=== PATIENT | female | born 1945 | race Asian ===

== ENCOUNTER 2022-06-20 18:16 | Inpatient (IN) | payer MEDICARE, OTHER ==
[~2022-06-20] VITALS: Ht 167.6 cm; Wt 122.5 kg
[2022-06-20] MEDS ORDERED: CALC1TAB30 PO (19:08)
[2022-06-20] MEDS ORDERED: BENZ-13 PO (19:08)
[2022-06-20] MEDS ORDERED: HYDR-894 PO (19:08)
[2022-06-20] MEDS ORDERED: BUME2TAB7 PO (19:08)
[2022-06-20] MEDS ORDERED: INSU100V39 SQ ×2 (19:08)
[2022-06-20] MEDS ORDERED: MAG30ORA PO (19:08)
[2022-06-20] MEDS ORDERED: SILVER SULFADIAZINE TOP (19:08)
[2022-06-20] MEDS ORDERED: INSU100V7 SQ (19:08)
[2022-06-20] MEDS ORDERED: ALLO100T PO (19:08)
[2022-06-20] MEDS ORDERED: DOCU-141 PO (19:08)
[2022-06-20] MEDS ORDERED: CARV3.12 PO (19:08)
[2022-06-20] MEDS ORDERED: ACET-2154 PO (19:08)
[2022-06-20] MEDS ORDERED: NITR0.4T48 SL (19:08)
[2022-06-20] MEDS ORDERED: SULF1TAB47 PO (19:08)
[2022-06-20] MEDS ORDERED: RIVA10TA PO (19:08)
[2022-06-20] MEDS ORDERED: GABA-532 PO (19:08)
[2022-06-20] MEDS ORDERED: ANAS1TAB50 PO (19:08)
[2022-06-20] MEDS ORDERED: MORPHINE SULFATE 4 MG/1 ML DISP.SYRIN IV ONE (19:15)
[2022-06-20 19:36] LABS: HEMATOCRIT 30.9 % (31.2-41.9); MEAN CORPUSCULAR HEMOGLOBIN 25.7 uug (24.7-32.8); MEAN CORPUSCULAR VOLUME 86.4 fL (75.5-95.3); PLATELET COUNT (AUTO) 213 K/uL (179-408)
[2022-06-20 19:55] LABS: ALANINE AMINOTRANSFERASE 20 U/L (14-59); ALKALINE PHOSPHATASE 177 U/L (50-136); ASPARTATE AMINOTRANSFERASE 21 U/L (15-37); BILIRUBIN,DIRECT 0.1 mg/dL (0.0-0.2); BILIRUBIN,TOTAL 0.4 mg/dL (0.2-1.0); CHLORIDE 100 mmol/L (98-107); GLUCOSE 167 mg/dL (74-106); POTASSIUM 4.9 mmol/L (3.5-5.1); TOTAL PROTEIN, SERUM 7.1 g/dL (6.4-8.2); UREA NITROGEN, BLOOD 40 mg/dL (7-18)
[2022-06-20 20:03] LABS: CARBON DIOXIDE 42 mmol/L (21-32)
[2022-06-20] MEDS ORDERED: BENZONATATE 100 MG CAPSULE PO PRN (20:15)
[2022-06-20] MEDS ORDERED: RIVAROXABAN 10 MG TABLET PO SCH (20:15)
[2022-06-20] MEDS ORDERED: hydrALAZINE HCL 25 MG TABLET PO PRN (20:15)
[2022-06-20] MEDS ORDERED: NITROGLYCERIN 0.4 MG/TAB BOTTLE SL PRN (20:15)
[2022-06-20] MEDS ORDERED: MAG HYDROX/AL HYDROX/SIMETH 30 ML LIQUID UDC PO PRN (20:15)
[2022-06-20] MEDS ORDERED: DOCUSATE SODIUM 100 MG CAPSULE PO PRN (20:15)
--- NOTE | 2022-06-20 20:21 | NUR ---
pt in bed, assisted with bedpan. aox4
[2022-06-20] MEDS ORDERED: DEXTROSE 50% 50 ML DISP.SYRIN IV PRN (20:30)
[2022-06-20] MEDS: FUROSEMIDE 40 MG/4 ML VIAL IV SCH (21:00)
[2022-06-20] MEDS ORDERED: PIPERACILLIN SODIUM/TAZOBACTAM 3.375 G in IV DEXTROSE 5% 50 ML IV SCH (21:15)
[2022-06-20] MEDS ORDERED: VANCOMYCIN 1G/D5W 200 ML PIGGYBACK IV ONE (21:30)
--- NOTE | 2022-06-20 21:32 | NUR ---
Called [facility] for Dr. Alcocer, awaiting for call
--- NOTE | 2022-06-20 21:36 | NUR ---
Cancelled Dr. Alcocer Calling Dr. Suh, Dr. Caro currently speaking to him
[2022-06-20] MEDS ORDERED: FUROSEMIDE 40 MG/4 ML VIAL IV ONE (21:45)
--- NOTE | 2022-06-20 21:52 | NUR ---
mrsa and covid test, sent to lab
[2022-06-20 22:00] VITALS: BP 123/47
--- NOTE | 2022-06-20 22:00 | NUR ---
Received a 76 yr old female from ER with an admitting diagnosis of bilateral lower extremities cellulitis. AAOx4. All needs attended. Hx of HTN, CHF, DM, CKD, COVID. On continous 2L via nasal cannula, pulse ox 94%. VSS. BLE with pitting edema, (+) 4 Left lower extremity reddenned and swollen with some blackened areas noted. RLE (+)reddenned. #20 Left arm heplock flushed and patent, IV ABT given as ordered. Denies any pain nor any discomfort. Refused Isabella. Accucheck 210, with 4 units given as coverage. Patient also on lantus. Lujan catheter intact draining nan urine. I & O monitor. Fall precautions maintained. Siderails up for safety. Addendum: 06/21/22 at 0400 by ALEM SEARS RN patient placed on the monitor, patient controlled Afib HR 80's.
--- NOTE | 2022-06-20 22:15 | NUR ---
thomas 18 fr inserted
--- NOTE | 2022-06-20 22:43 | NUR ---
pt. refused morphine
--- NOTE | 2022-06-20 22:53 | NUR ---
endorsed to MINISTERIO Epperson to 301a
[2022-06-20] MEDS ORDERED: PIPERACILLIN SODIUM/TAZOBACTAM 3.375 G in IV DEXTROSE 5% 50 ML IV ONE (23:00)
[2022-06-21] VITALS: BP 106/60
[2022-06-21] MEDS: GABAPENTIN 100 MG CAPSULE PO SCH ×4 (01:00→16:29)
[2022-06-21] MEDS: HYDROCODONE/APAP 5-325MG TABLET PO PRN ×2 (01:02→01:13)
[2022-06-21] MEDS: CARVEDILOL 3.125 MG TABLET PO SCH ×3 (01:04→16:36)
[2022-06-21] MEDS ORDERED: VANCOMYCIN IV 200 ML ONE (01:04)
[2022-06-21] MEDS ORDERED: PIPERACILLIN/TAZOBACTAM/D5W 50 ML IV ONE (01:04)
[2022-06-21] MEDS: BLOOD SUGAR DIAGNOSTIC 1 EACH STRIP VI SCH ×5 (01:17→20:28)
[2022-06-21] MEDS: PIPERACILLIN SODIUM/TAZOBACTAM 3.375 G in IV DEXTROSE 5% 50 ML IV SCH ×2 (01:34→05:23)
[2022-06-21] MEDS: INSULIN GLARGINE,HUM 300 UNITS/3 ML CARTRIDGE SQ SCH ×2 (01:51→21:00)
[2022-06-21] MEDS: INSULIN REGULAR, HUMAN 300 UNITS/3 ML VIAL SQ PRN (01:52)
[2022-06-21 04:00] VITALS: BP 112/65
[2022-06-21] MEDS ORDERED: REMEDY ESSENTIAL ZINC PASTE 113 GM TOP PRN (05:00)
[2022-06-21] MEDS ORDERED: ONDANSETRON 4 MG/2 ML VIAL IV PRN (05:00)
--- NOTE | 2022-06-21 06:42 | NUR ---
Noted thomas catheter with blood tinged urine, no clots noted. Will monitor patient.
--- NOTE | 2022-06-21 07:09 | NUR ---
lasix 4o was ordered last night, not given it was just given in ER prior to admission on the floor.
[2022-06-21 07:29] LABS: HEMATOCRIT 29.2 % (31.2-41.9); MEAN CORPUSCULAR HEMOGLOBIN 26.3 uug (24.7-32.8); MEAN CORPUSCULAR VOLUME 86.2 fL (75.5-95.3); PLATELET COUNT (AUTO) 182 K/uL (179-408)
[2022-06-21] MEDS: INSULIN REGULAR, HUMAN 300 UNIT/3 ML VIAL SQ PRN ×3 (07:41→17:24)
[2022-06-21 08:06] LABS: CHLORIDE 100 mmol/L (98-107); CREATININE 1.9 mg/dL (0.6-1.3); GLUCOSE 255 mg/dL (74-106); MAGNESIUM 2.1 mg/dL (1.8-2.4); PHOSPHOROUS 4.2 mg/dL (2.5-4.9); POTASSIUM 4.4 mmol/L (3.5-5.1); UREA NITROGEN, BLOOD 39 mg/dL (7-18)
[2022-06-21 08:08] LABS: CARBON DIOXIDE 40 mmol/L (21-32)
[2022-06-21] MEDS: FUROSEMIDE 40 MG/4 ML VIAL IV SCH ×2 (08:17→20:19)
[2022-06-21] MEDS: CALCIUM CARB/VITAMIN D 500MG-200UNITS TABLET PO SCH (08:23)
[2022-06-21] MEDS: ALLOPURINOL 100 MG TABLET PO SCH (08:23)
[2022-06-21] MEDS ORDERED: SILVER SULFADIAZINE 1% CREAM 50 GM TP SCH (09:00)
--- NOTE | 2022-06-21 09:00 | NUR ---
MID LINE INSERTED TO HER RIGHT FOREARM ORDERED CARLOZ WELL
[2022-06-21] MEDS: ANASTROZOLE 1 MG TABLET PO SCH (10:05)
[2022-06-21] MEDS: REMEDY ESSENTIAL ZINC PASTE 113 GM TOP SCH ×2 (10:06→20:19)
--- NOTE | 2022-06-21 11:17 | NUR ---
WOUND CARE CONSULT: PT PRESENTS WITH SOME DISCOLORATION TO BUTTOCKS, BLANCHABLE REDNESS TO SACRUM, LEFT LOWER LEG REDNESS WITH OPEN WOUND, PRESENT ON ADMISSION. DR RAY CALLED FOR DPM CONSULT. PT IS VERY DROWSY. RECOMMENDATIONS MADE FOR SKIN PROTECTION INCLUDING BARIATRIC BED TO ACCOMMODATE PT'S WEIGHT AND GIRTH. IN AGREEMENT WITH PLAN OF CARE. Addendum: 06/21/22 at 1120 by SANDRA SUMMERS RN Amended: Links added.
[2022-06-21 12:00] VITALS: BP 118/56
[2022-06-21] MEDS: PIPERACILLIN SODIUM/TAZOBACTAM 3.375 G in IV DEXTROSE 5% 100 ML IV SCH ×2 (13:09→21:35)
--- NOTE | 2022-06-21 15:00 | NUR ---
PATIENT HAS EYES CLOSED WILL OPEN EYES WHEN NAME IS CALLED OR SHE IS TOUCHED BUT WILL SPONTANEOUSLY CLOSE HER EYES NOTED SOME ABDOMINAL HEAVY BREATHING O2 SAT CHECKED AND ITS 95 WITH O2 AT 2L/M CO2 IS 40 WHICH IS BETTER THAT YESTERDAY AT 42 HER RATE FLUCTED BETWEEN 110-[address] COOL AND LEFT HIM A MESSAGE.
--- NOTE | 2022-06-21 15:30 | NUR ---
DR CASTAÑEDA RETURNED CALL WITH NO NEW ORDERS AT THIS TIME STATED THAT HER ISSUE IS CARDIAC NOT RESPIRATORY.
[2022-06-21] MEDS ORDERED: DILTIAZEM HCL 25 MG IV IV PRN (15:45)
[2022-06-21 16:00] VITALS: BP 114/51
--- NOTE | 2022-06-21 17:00 | NUR ---
ANOTHER CALL FROM DR TENORIO STATED TO GIVE LASIX AND TO RESTRICT FLUID TO 750 ML IN 24 HOURS.
[2022-06-21] MEDS ORDERED: FUROSEMIDE 40 MG/4 ML VIAL IV ONE (17:15)
[2022-06-21] MEDS: RIVAROXABAN 15 MG TABLET PO SCH (17:25)
[2022-06-21 20:00] VITALS: BP 107/52
--- NOTE | 2022-06-21 21:07 | NUR ---
Accucheck 127. Dr Suh aware. Lantus 55 units SQ not given. He said do not give it. Will monitor patient.
[2022-06-21] MEDS ORDERED: PIPERACILLIN SODIUM/TAZOBACTAM 3.375 G in IV DEXTROSE 5% 50 ML IV SCH (22:59)
[2022-06-22] VITALS: BP 119/58
[2022-06-22 03:48] VITALS: BP 129/81
--- NOTE | 2022-06-22 03:58 | NUR ---
Lethargic but arousable. On continous 2L via nasal cannula,pulse 0x 94%. On bariatric bed. All needs attended. IV ABT given via RUE midline. Fall precautions maintained. Fluid restriction maintained. On 750 ml/24 hours. Tolerated well. Kept comfortable. Lujan catheter intact draining with a good amount of urine. Will monitor patient.
[2022-06-22] MEDS: PIPERACILLIN SODIUM/TAZOBACTAM 3.375 G in IV DEXTROSE 5% 100 ML IV SCH ×3 (05:15→21:27)
[2022-06-22] MEDS: ACETAMINOPHEN 325 MG TABLET PO PRN (05:39)
[2022-06-22] MEDS: BLOOD SUGAR DIAGNOSTIC 1 EACH STRIP VI SCH ×4 (06:33→20:42)
[2022-06-22 07:31] LABS: MEAN CORPUSCULAR HEMOGLOBIN 26.2 uug (24.7-32.8); MEAN CORPUSCULAR VOLUME 86.3 fL (75.5-95.3); PLATELET COUNT (AUTO) 195 K/uL (179-408)
[2022-06-22 07:54] LABS: CHLORIDE 100 mmol/L (98-107); CREATININE 1.8 mg/dL (0.6-1.3); GLUCOSE 150 mg/dL (74-106); MAGNESIUM 2.2 mg/dL (1.8-2.4); PHOSPHOROUS 4.4 mg/dL (2.5-4.9); POTASSIUM 4.7 mmol/L (3.5-5.1); UREA NITROGEN, BLOOD 41 mg/dL (7-18)
[2022-06-22] MEDS: GABAPENTIN 100 MG CAPSULE PO SCH ×3 (08:13→17:13)
[2022-06-22] MEDS: ALLOPURINOL 100 MG TABLET PO SCH (08:13)
[2022-06-22] MEDS: FUROSEMIDE 40 MG/4 ML VIAL IV SCH ×3 (08:13→20:25)
[2022-06-22] MEDS: CALCIUM CARB/VITAMIN D 500MG-200UNITS TABLET PO SCH (08:13)
[2022-06-22] MEDS: CARVEDILOL 3.125 MG TABLET PO SCH ×2 (08:14→17:05)
[2022-06-22] MEDS: REMEDY ESSENTIAL ZINC PASTE 113 GM TOP SCH ×2 (08:44→20:33)
[2022-06-22] MEDS: ANASTROZOLE 1 MG TABLET PO SCH (08:46)
[2022-06-22] MEDS: SILVER SULFADIAZINE 1% CREAM 50 GM TP SCH (08:46)
[2022-06-22] MEDS: INSULIN REGULAR, HUMAN 300 UNIT/3 ML VIAL SQ PRN ×3 (08:56→16:08)
[2022-06-22 08:59] LABS: CARBON DIOXIDE 41 mmol/L (21-32)
--- NOTE | 2022-06-22 10:25 | NUR ---
Received a call from lab and reporting critical lab value for CO2 41. Reported to Dr. Suh and he ordered Bakery Worker consult and said He will contact Dr. Blair. Will keep monitoring the patient.
[2022-06-22] MEDS: GLUCERNA SHAKE 237 ML CAN PO SCH (11:37)
[2022-06-22] MEDS: PROTEIN SUPPLEMENT (PROSTAT) 30 ML LIQUID PO SCH (11:38)
[2022-06-22 11:45] VITALS: BP 104/56
[2022-06-22 13:30] LABS: ABG BASE EXCESS 13.9 mmol/L; ABG HCO3 41.4 mmol/L; ABG PCO2 70.9 mmHg (35.0-45.0); ABG PH 7.384 (7.350-7.450); ABG PO2 63.4 mmHg (75.0-100.0); ABG SITE RIGHT RADIAL; ABG TOTAL HEMOGLOBIN 10.1 G/dL (12.0-16.0); COHb 1.7 % (0.5-1.5); O2Hb 90.7 % (94.0-97.0); VENT MODE Nasal Cannula
--- NOTE | 2022-06-22 14:08 | NUR ---
Critical lab value for ABG (70.9) reported to Dr. Blair by RT (Pradip) and Dr. Blair said No new order. Also, Reported to Dr. Suh and I am waiting for respond.
[2022-06-22 16:00] VITALS: BP 133/71
[2022-06-22] MEDS: RIVAROXABAN 15 MG TABLET PO SCH (17:06)
[2022-06-22 20:00] VITALS: BP 130/59
[2022-06-22] MEDS: INSULIN REGULAR, HUMAN 300 UNITS/3 ML VIAL SQ PRN (20:45)
[2022-06-22] MEDS: INSULIN GLARGINE,HUM 300 UNITS/3 ML CARTRIDGE SQ SCH (20:46)
--- NOTE | 2022-06-22 21:51 | NUR ---
Awake alert and oriented x2-3 Patient lethargic but easily arousable. All needs attended. VSS. Patient on continous pulse ox per MD's order. pulse ox 91% on 2L via nasal cannula. Fluid restriction maintained. Patient repositioned for comfort. Lujan catheter intact draining yellow urine. No acute distress noted. Accucheck 193. Fall precautions maintained. Siderails up for safety. Patient for midline insertion. BLE +3-4 edema noted.
[2022-06-23] VITALS: BP 106/46
--- NOTE | 2022-06-23 02:01 | NUR ---
PATIENT WITH CONT PULSE OXY, KEEP SAT 88-92%, PT ON O2 @ 1.5 L/M NC, SAT 89-90%.Felix ROBLERO RCP Addendum: 06/23/22 at 0202 by GEOVANY ROBLERO RT Amended: Links added.
[2022-06-23 04:20] VITALS: BP 105/66
[2022-06-23] MEDS: PIPERACILLIN SODIUM/TAZOBACTAM 3.375 G in IV DEXTROSE 5% 100 ML IV SCH ×3 (05:27→23:00)
--- NOTE | 2022-06-23 06:30 | NUR ---
Awake and alert and oriented x1 this am. Very confused. Patient redirected. All needs attended. Repositioned. Lujan catheter intact draining well. On continous pulse ox, 90-92% on 2L. IV ABT given via left arm heplock. On telemetry, patient controlled Afib HR 80's. Will monitor patient.
[2022-06-23] MEDS: BLOOD SUGAR DIAGNOSTIC 1 EACH STRIP VI SCH ×4 (06:59→21:15)
[2022-06-23] MEDS: ALLOPURINOL 100 MG TABLET PO SCH (08:09)
[2022-06-23] MEDS: GABAPENTIN 100 MG CAPSULE PO SCH ×3 (08:09→17:19)
[2022-06-23] MEDS: CALCIUM CARB/VITAMIN D 500MG-200UNITS TABLET PO SCH (08:09)
[2022-06-23] MEDS: FUROSEMIDE 40 MG/4 ML VIAL IV SCH ×2 (08:10→21:09)
[2022-06-23] MEDS: CARVEDILOL 3.125 MG TABLET PO SCH ×2 (08:11→17:19)
[2022-06-23] MEDS: GLUCERNA SHAKE 237 ML CAN PO SCH (08:12)
[2022-06-23] MEDS: PROTEIN SUPPLEMENT (PROSTAT) 30 ML LIQUID PO SCH (08:12)
[2022-06-23] MEDS: ANASTROZOLE 1 MG TABLET PO SCH (08:12)
[2022-06-23] MEDS: SILVER SULFADIAZINE 1% CREAM 50 GM TP SCH (08:13)
[2022-06-23] MEDS: REMEDY ESSENTIAL ZINC PASTE 113 GM TOP SCH ×2 (08:14→21:16)
[2022-06-23] MEDS: INSULIN REGULAR, HUMAN 300 UNIT/3 ML VIAL SQ PRN ×2 (08:16→11:36)
[2022-06-23 11:07] VITALS: BP 103/56
[2022-06-23 12:24] LABS: HEMATOCRIT 29.9 % (31.2-41.9); MEAN CORPUSCULAR HEMOGLOBIN 25.7 uug (24.7-32.8); MEAN CORPUSCULAR VOLUME 85.6 fL (75.5-95.3); PLATELET COUNT (AUTO) 201 K/uL (179-408)
[2022-06-23 12:45] LABS: CHLORIDE 101 mmol/L (98-107); CREATININE 1.6 mg/dL (0.6-1.3); GLUCOSE 186 mg/dL (74-106); MAGNESIUM 2.3 mg/dL (1.8-2.4); PHOSPHOROUS 3.6 mg/dL (2.5-4.9); POTASSIUM 4.1 mmol/L (3.5-5.1); UREA NITROGEN, BLOOD 43 mg/dL (7-18)
[2022-06-23] MEDS ORDERED: ACETAzolamide SODIUM 500 MG VIAL IV SCH (13:00)
[2022-06-23 13:02] LABS: CARBON DIOXIDE 44 mmol/L (21-32)
--- NOTE | 2022-06-23 13:13 | NUR ---
Received a call from lab by Jazmyn and reported critical lab value for CO2 44. Reported to Dr. Suh and Dr. Blair and no new order received.
[2022-06-23] MEDS: ACETAzolamide SODIUM 500 MG VIAL IV SCH (14:23)
--- NOTE | 2022-06-23 14:41 | NUR ---
Pt. is awake. Alert and oriented x1 with confusion. Skin treatment done. Noted yellow color urine in the bag. ACID RETORT OPERATOR(Fareed Burnett) inserted a mid line. Will keep monitoring the patient.
[2022-06-23 15:12] VITALS: BP 124/52
[2022-06-23] MEDS: RIVAROXABAN 15 MG TABLET PO SCH (18:12)
[2022-06-23 20:41] VITALS: BP 120/65
[2022-06-23] MEDS: INSULIN GLARGINE,HUM 300 UNITS/3 ML CARTRIDGE SQ SCH (21:13)
[2022-06-23] MEDS: INSULIN REGULAR, HUMAN 300 UNITS/3 ML VIAL SQ PRN (21:16)
--- NOTE | 2022-06-23 21:34 | NUR ---
Midline inserted during day shift Addendum: 06/23/22 at 2135 by [facility] RN6 RN Amended: Links added.
[2022-06-23 23:56] VITALS: BP 116/64
[2022-06-24 04:06] VITALS: BP 125/72
[2022-06-24] MEDS: PIPERACILLIN SODIUM/TAZOBACTAM 3.375 G in IV DEXTROSE 5% 100 ML IV SCH ×3 (07:02→21:48)
[2022-06-24 07:22] LABS: HEMATOCRIT 30.9 % (31.2-41.9); MEAN CORPUSCULAR VOLUME 86.6 fL (75.5-95.3); PLATELET COUNT (AUTO) 218 K/uL (179-408)
[2022-06-24] MEDS: BLOOD SUGAR DIAGNOSTIC 1 EACH STRIP VI SCH ×4 (07:57→21:47)
[2022-06-24 08:22] LABS: CHLORIDE 101 mmol/L (98-107); CREATININE 1.6 mg/dL (0.6-1.3); GLUCOSE 145 mg/dL (74-106); MAGNESIUM 2.5 mg/dL (1.8-2.4); PHOSPHOROUS 4.2 mg/dL (2.5-4.9); UREA NITROGEN, BLOOD 46 mg/dL (7-18)
[2022-06-24] MEDS: CALCIUM CARB/VITAMIN D 500MG-200UNITS TABLET PO SCH (08:23)
[2022-06-24] MEDS: CARVEDILOL 3.125 MG TABLET PO SCH ×2 (08:23→16:21)
[2022-06-24] MEDS: ACETAzolamide SODIUM 500 MG VIAL IV SCH (08:24)
[2022-06-24] MEDS: PROTEIN SUPPLEMENT (PROSTAT) 30 ML LIQUID PO SCH (08:24)
[2022-06-24] MEDS: GABAPENTIN 100 MG CAPSULE PO SCH ×3 (08:24→16:21)
[2022-06-24] MEDS: ANASTROZOLE 1 MG TABLET PO SCH (08:25)
[2022-06-24] MEDS: GLUCERNA SHAKE 237 ML CAN PO SCH (08:26)
[2022-06-24] MEDS: ALLOPURINOL 100 MG TABLET PO SCH (08:26)
[2022-06-24] MEDS: CADEXOMER IODINE 40 GM TUBE TOP SCH (08:27)
[2022-06-24] MEDS: SILVER SULFADIAZINE 1% CREAM 50 GM TP SCH (08:27)
[2022-06-24] MEDS: REMEDY ESSENTIAL ZINC PASTE 113 GM TOP SCH ×2 (08:27→21:40)
[2022-06-24] MEDS: FUROSEMIDE 40 MG/4 ML VIAL IV SCH ×2 (08:30→21:46)
[2022-06-24] MEDS: INSULIN REGULAR, HUMAN 300 UNIT/3 ML VIAL SQ PRN ×3 (08:31→15:46)
[2022-06-24 08:48] LABS: CARBON DIOXIDE 43 mmol/L (21-32)
--- NOTE | 2022-06-24 09:06 | NUR ---
Received critical lab value for CO2 43 by Carla and reported to Dr. Blair and Dr. Suh. Dr. Blair responded "ok" and no new order received. Will keep monitoring the patient.
[2022-06-24 12:11] VITALS: BP 114/80
[2022-06-24 16:33] VITALS: BP 117/69
[2022-06-24] MEDS: RIVAROXABAN 15 MG TABLET PO SCH (17:16)
--- NOTE | 2022-06-24 17:57 | NUR ---
Pt. noted to be stable during the shift. No c/o pain and SOB noted. All need attended and met. Compliance with the care given. Skin treatment provided. Will keep monitoring the patient.
[2022-06-24 20:00] VITALS: BP 115/70
[2022-06-24] MEDS: INSULIN GLARGINE,HUM 300 UNITS/3 ML CARTRIDGE SQ SCH (21:43)
[2022-06-25] VITALS: BP 98/51
[2022-06-25 04:00] VITALS: BP 109/58
[2022-06-25] MEDS: BLOOD SUGAR DIAGNOSTIC 1 EACH STRIP VI SCH ×4 (06:32→21:23)
[2022-06-25] MEDS: PIPERACILLIN SODIUM/TAZOBACTAM 3.375 G in IV DEXTROSE 5% 100 ML IV SCH ×3 (06:32→22:28)
[2022-06-25 07:47] LABS: ABG BASE EXCESS 24.5 mmol/L; ABG HCO3 54.8 mmol/L; ABG PCO2 103.5 mmHg (35.0-45.0); ABG PH 7.342 (7.350-7.450); ABG PO2 69.3 mmHg (75.0-100.0); ABG SITE RIGHT RADIAL; ABG TOTAL HEMOGLOBIN 10.5 G/dL (12.0-16.0); COHb 1.5 % (0.5-1.5); MetHb 0.3 % (0.0-1.5); O2Hb 91.6 % (94.0-97.0); VENT MODE nc
--- NOTE | 2022-06-25 08:00 | NUR ---
ABG PCO2 elevated to 103.5 @ ab8 @ 800 am today. [address] Boggs notified of abg results. New orders received for BIPAP 20/10 rate of 12. Pt lethargic unable to give her medications. Pt alert to her name pt only responds to pain. 830 RT Started Bipap as ordered. Noted edema On LE's +3 and Left UE's +2 IV on left forearm intact and flushing with minimal resistance.
[2022-06-25 08:21] LABS: CHLORIDE 101 mmol/L (98-107); CREATININE 1.5 mg/dL (0.6-1.3); GLUCOSE 111 mg/dL (74-106); MAGNESIUM 2.7 mg/dL (1.8-2.4); PHOSPHOROUS 4.2 mg/dL (2.5-4.9); POTASSIUM 3.8 mmol/L (3.5-5.1); UREA NITROGEN, BLOOD 50 mg/dL (7-18)
[2022-06-25 08:26] LABS: HEMATOCRIT 31.8 % (31.2-41.9); MEAN CORPUSCULAR HEMOGLOBIN 25.9 uug (24.7-32.8); MEAN CORPUSCULAR VOLUME 87.4 fL (75.5-95.3); PLATELET COUNT (AUTO) 243 K/uL (179-408)
[2022-06-25 08:32] LABS: CARBON DIOXIDE 43 mmol/L (21-32)
[2022-06-25] MEDS: ANASTROZOLE 1 MG TABLET PO SCH (09:00)
[2022-06-25] MEDS: CARVEDILOL 3.125 MG TABLET PO SCH ×2 (09:00→16:10)
[2022-06-25] MEDS: GLUCERNA SHAKE 237 ML CAN PO SCH (09:00)
[2022-06-25] MEDS: ALLOPURINOL 100 MG TABLET PO SCH (09:00)
[2022-06-25] MEDS: GABAPENTIN 100 MG CAPSULE PO SCH ×3 (09:00→16:10)
[2022-06-25] MEDS: CALCIUM CARB/VITAMIN D 500MG-200UNITS TABLET PO SCH (09:00)
[2022-06-25] MEDS: PROTEIN SUPPLEMENT (PROSTAT) 30 ML LIQUID PO SCH (09:07)
[2022-06-25] MEDS: FUROSEMIDE 40 MG/4 ML VIAL IV SCH ×2 (09:07→21:16)
[2022-06-25] MEDS: CADEXOMER IODINE 40 GM TUBE TOP SCH (09:09)
[2022-06-25] MEDS: REMEDY ESSENTIAL ZINC PASTE 113 GM TOP SCH ×2 (09:09→21:16)
[2022-06-25] MEDS: SILVER SULFADIAZINE 1% CREAM 50 GM TP SCH (09:10)
--- NOTE | 2022-06-25 10:00 | NUR ---
Dressing change on left leg anterior wound as ordered. Noted greenish drainage on wound site. Covered wound with abd pad.
[2022-06-25 10:44] LABS: ABG BASE EXCESS 19.6 mmol/L; ABG HCO3 48.6 mmol/L; ABG PCO2 87.2 mmHg (35.0-45.0); ABG PH 7.364 (7.350-7.450); ABG PO2 59.3 mmHg (75.0-100.0); ABG SITE RIGHT RADIAL; ABG TOTAL HEMOGLOBIN 10.5 G/dL (12.0-16.0); COHb 1.6 % (0.5-1.5); MetHb 0.3 % (0.0-1.5); O2Hb 88.8 % (94.0-97.0); VENT MODE BIPAP
[2022-06-25 11:44] VITALS: BP 89/46
--- NOTE | 2022-06-25 12:00 | NUR ---
Dr reddy here to see patient notified of repeat abg after bipap has been going for 2 hrs as ordered. PCo2 87.2 Noted SBP's on 90's and pt unable to take pills sencdary pt lethargic. Notified DR Suh - awaiting order for plasmanate
[2022-06-25] MEDS ORDERED: ALBUMIN HUMAN 25% 50 ML IV ONE ×3 (12:30→14:30)
[2022-06-25 16:00] VITALS: BP 85/36
[2022-06-25] MEDS: RIVAROXABAN 15 MG TABLET PO SCH (16:10)
--- NOTE | 2022-06-25 17:40 | NUR ---
SBP @109/65 - hr of 85 on bipap with sat of 95%. Pt waking up more and conversing that she wants to drink water. Explained to pt that were limiting her fluid intake due to pt is in lasix and were diuresing her. Pt acknowledge understanding. Notified DR Suh of latest bs of 75 and pt not eating. No new order received and carried out.
[2022-06-25 18:01] VITALS: BP 109/65
[2022-06-25 20:00] VITALS: BP 114/51
[2022-06-25] MEDS: INSULIN GLARGINE,HUM 300 UNITS/3 ML CARTRIDGE SQ SCH (21:00)
[2022-06-25] MEDS: HYDROCODONE/APAP 5-325MG TABLET PO PRN (21:17)
[2022-06-26] VITALS: BP 107/48
--- NOTE | 2022-06-26 01:45 | NUR ---
pT HAS BEEN NON COMPLIANT WITH CARE; PT PULLING LINES TELE AND PROBE PLUS E HER BIPAP MASK; REFERRED TO [employer] TELEVISION AND RADIO REPAIRER AND ORDERED BILATERAL MITTENS
[2022-06-26 04:00] VITALS: BP 99/47
[2022-06-26] MEDS: PIPERACILLIN SODIUM/TAZOBACTAM 3.375 G in IV DEXTROSE 5% 100 ML IV SCH ×3 (06:15→22:01)
[2022-06-26] MEDS: BLOOD SUGAR DIAGNOSTIC 1 EACH STRIP VI SCH ×4 (06:35→20:23)
[2022-06-26 07:43] LABS: HEMATOCRIT 30.7 % (31.2-41.9); MEAN CORPUSCULAR HEMOGLOBIN 26.1 uug (24.7-32.8); MEAN CORPUSCULAR VOLUME 84.8 fL (75.5-95.3); PLATELET COUNT (AUTO) 224 K/uL (179-408)
[2022-06-26] MEDS: PROTEIN SUPPLEMENT (PROSTAT) 30 ML LIQUID PO SCH (08:00)
[2022-06-26 08:01] LABS: CARBON DIOXIDE 39 mmol/L (21-32); CHLORIDE 101 mmol/L (98-107); CREATININE 1.5 mg/dL (0.6-1.3); GLUCOSE 81 mg/dL (74-106); MAGNESIUM 2.6 mg/dL (1.8-2.4); POTASSIUM 3.4 mmol/L (3.5-5.1); UREA NITROGEN, BLOOD 46 mg/dL (7-18)
[2022-06-26 08:41] LABS: ABG BASE EXCESS 11.9 mmol/L; ABG HCO3 37.8 mmol/L; ABG PCO2 57.4 mmHg (35.0-45.0); ABG PH 7.437 (7.350-7.450); ABG PO2 71.6 mmHg (75.0-100.0); ABG SITE RIGHT RADIAL; ABG TOTAL HEMOGLOBIN 10.3 G/dL (12.0-16.0); COHb 1.1 % (0.5-1.5); MetHb 0.3 % (0.0-1.5); O2Hb 92.3 % (94.0-97.0); VENT MODE Nasal Cannula
[2022-06-26] MEDS: GLUCERNA SHAKE 237 ML CAN PO SCH (09:00)
[2022-06-26] MEDS: GABAPENTIN 100 MG CAPSULE PO SCH ×3 (09:48→16:19)
[2022-06-26] MEDS: ALLOPURINOL 100 MG TABLET PO SCH (09:48)
[2022-06-26] MEDS: CALCIUM CARB/VITAMIN D 500MG-200UNITS TABLET PO SCH (09:48)
[2022-06-26] MEDS: SILVER SULFADIAZINE 1% CREAM 50 GM TP SCH (09:49)
[2022-06-26] MEDS: CADEXOMER IODINE 40 GM TUBE TOP SCH (09:49)
[2022-06-26] MEDS: CARVEDILOL 3.125 MG TABLET PO SCH ×2 (09:50→16:17)
[2022-06-26] MEDS: REMEDY ESSENTIAL ZINC PASTE 113 GM TOP SCH ×2 (09:50→20:23)
[2022-06-26] MEDS: FUROSEMIDE 40 MG/4 ML VIAL IV SCH ×2 (09:51→20:18)
[2022-06-26] MEDS: ANASTROZOLE 1 MG TABLET PO SCH (09:53)
[2022-06-26] MEDS ORDERED: POTASSIUM CHLORIDE 20 MEQ TAB.PRT.SR PO ONE ×2 (10:30→20:15)
[2022-06-26 11:32] VITALS: BP 109/57
[2022-06-26] MEDS: INSULIN REGULAR, HUMAN 300 UNIT/3 ML VIAL SQ PRN (12:54)
[2022-06-26] MEDS: ACETAMINOPHEN 325 MG TABLET PO PRN ×2 (15:14→21:50)
[2022-06-26 16:00] VITALS: BP 105/44
[2022-06-26] MEDS: RIVAROXABAN 15 MG TABLET PO SCH (17:47)
--- NOTE | 2022-06-26 19:30 | NUR ---
Received patient lying in bed. Daughter at bedside. Dosing off and on but arouse to verbal and tactile stimuli. AAOx2-3. In no acute distress. Denies any pain or SOB. On O2 at 1LPM via NC in place. O2 sat at 94%. A. Fib with RBBB on tele with HR of 83/min. Lujan catheter intact and draining via gravity. Safety measure initiated and call light within reached.
[2022-06-26 20:00] VITALS: BP 101/44
[2022-06-26] MEDS: INSULIN REGULAR, HUMAN 300 UNITS/3 ML VIAL SQ PRN (20:25)
[2022-06-26] MEDS: INSULIN GLARGINE,HUM 300 UNITS/3 ML CARTRIDGE SQ SCH (20:26)
[2022-06-27] VITALS: BP 102/55
--- NOTE | 2022-06-27 | NUR ---
Patient latest temp 99.8 axiliary. Cooling measure provided. Tylenol 650mg PO given at 2150 06/26/22. Will continue to monitor.
--- NOTE | 2022-06-27 03:13 | NUR ---
Dr Suh with order to discontinue mittens. pt no longer pulling out BIPAP.
[2022-06-27 04:00] VITALS: BP 117/65
--- NOTE | 2022-06-27 04:40 | NUR ---
Per patient request, patient is awake and taken off bipap and 1.5 LPM N/C placed. Tolerating well.
--- NOTE | 2022-06-27 05:08 | NUR ---
In no acute distress. BIPAP used during the night. Denies any pain or SOB. No adverse reaction noted from IV antibiotic. A fib with RBBB on tele with HR of 74/min. Lujan catheter intact and patent. Needs attended to and met. Safety measure maintained and call light within reached.
--- NOTE | 2022-06-27 05:11 | NUR ---
Afebrile at this time.
[2022-06-27] MEDS: PIPERACILLIN SODIUM/TAZOBACTAM 3.375 G in IV DEXTROSE 5% 100 ML IV SCH ×3 (06:10→22:05)
[2022-06-27] MEDS: BLOOD SUGAR DIAGNOSTIC 1 EACH STRIP VI SCH ×4 (06:30→20:12)
[2022-06-27 06:53] LABS: HEMATOCRIT 31.3 % (31.2-41.9); MEAN CORPUSCULAR HEMOGLOBIN 26.1 uug (24.7-32.8); MEAN CORPUSCULAR VOLUME 85.4 fL (75.5-95.3); PLATELET COUNT (AUTO) 239 K/uL (179-408)
[2022-06-27 07:25] LABS: CARBON DIOXIDE 37 mmol/L (21-32); CHLORIDE 102 mmol/L (98-107); CREATININE 1.6 mg/dL (0.6-1.3); GLUCOSE 93 mg/dL (74-106); MAGNESIUM 2.7 mg/dL (1.8-2.4); PHOSPHOROUS 3.8 mg/dL (2.5-4.9); POTASSIUM 3.8 mmol/L (3.5-5.1); UREA NITROGEN, BLOOD 44 mg/dL (7-18)
[2022-06-27] MEDS: PROTEIN SUPPLEMENT (PROSTAT) 30 ML LIQUID PO SCH (08:00)
[2022-06-27] MEDS: ALLOPURINOL 100 MG TABLET PO SCH (08:41)
[2022-06-27] MEDS: GABAPENTIN 100 MG CAPSULE PO SCH ×3 (08:41→17:29)
[2022-06-27] MEDS: CALCIUM CARB/VITAMIN D 500MG-200UNITS TABLET PO SCH (08:41)
[2022-06-27] MEDS: FUROSEMIDE 40 MG/4 ML VIAL IV SCH ×2 (08:41→20:15)
[2022-06-27 08:42] LABS: ABG BASE EXCESS 9.5 mmol/L; ABG HCO3 37.1 mmol/L; ABG PH 7.348 (7.350-7.450); ABG PO2 72.6 mmHg (75.0-100.0); ABG SITE LEFT RADIAL; ABG TOTAL HEMOGLOBIN 10.4 G/dL (12.0-16.0); COHb 1.6 % (0.5-1.5); MetHb 0.3 % (0.0-1.5); O2Hb 91.6 % (94.0-97.0); VENT MODE Nasal Cannula
[2022-06-27] MEDS: GLUCERNA SHAKE 237 ML CAN PO SCH (08:42)
[2022-06-27] MEDS: CARVEDILOL 3.125 MG TABLET PO SCH ×2 (08:42→17:00)
[2022-06-27] MEDS: SILVER SULFADIAZINE 1% CREAM 50 GM TP SCH (08:43)
[2022-06-27] MEDS: CADEXOMER IODINE 40 GM TUBE TOP SCH (08:44)
[2022-06-27] MEDS: REMEDY ESSENTIAL ZINC PASTE 113 GM TOP SCH ×2 (08:44→20:15)
[2022-06-27] MEDS: ANASTROZOLE 1 MG TABLET PO SCH (08:47)
[2022-06-27 11:31] VITALS: BP 108/55
[2022-06-27] MEDS: INSULIN REGULAR, HUMAN 300 UNIT/3 ML VIAL SQ PRN ×2 (12:30→17:34)
[2022-06-27 15:41] VITALS: BP 95/48
[2022-06-27] MEDS: ACETAMINOPHEN 325 MG TABLET PO PRN (15:48)
[2022-06-27] MEDS: RIVAROXABAN 15 MG TABLET PO SCH (17:30)
--- NOTE | 2022-06-27 19:30 | NUR ---
Received patient lying in bed. Family members at bedside. AAOx3-4. In no apparent distress. Denies any pain or SOB. On O2 at 0.5LPM via NC in place. O2 sat at 95%. A. Fib with RBBB on tele with HR of 79/min. Midline on left upper arm intact and patent. Lujan catheter intact and draining via gravity. Safety measure initiated and call light within reached.
[2022-06-27 20:00] VITALS: BP 100/49
[2022-06-27] MEDS: INSULIN REGULAR, HUMAN 300 UNITS/3 ML VIAL SQ PRN (20:13)
[2022-06-27] MEDS: INSULIN GLARGINE,HUM 300 UNITS/3 ML CARTRIDGE SQ SCH (20:14)
[2022-06-28] VITALS: BP 119/62
[2022-06-28 04:00] VITALS: BP 112/52
--- NOTE | 2022-06-28 05:06 | NUR ---
In no acute distress. No complain of pain or SOB. BIPAP used during the night and tolerated well. No adverse reaction noted from IV antibiotic. Controlled A. Fib on tele with HR of 78/min. Lujan catheter drainng via gravity. Needs attended to and met.
[2022-06-28] MEDS: PIPERACILLIN SODIUM/TAZOBACTAM 3.375 G in IV DEXTROSE 5% 100 ML IV SCH (06:02)
[2022-06-28] MEDS: BLOOD SUGAR DIAGNOSTIC 1 EACH STRIP VI SCH ×2 (06:33→12:16)
[2022-06-28] MEDS: PROTEIN SUPPLEMENT (PROSTAT) 30 ML LIQUID PO SCH (08:19)
[2022-06-28] MEDS: FUROSEMIDE 40 MG/4 ML VIAL IV SCH (08:20)
[2022-06-28] MEDS: CALCIUM CARB/VITAMIN D 500MG-200UNITS TABLET PO SCH (08:21)
[2022-06-28 08:22] VITALS: BP 104/40
[2022-06-28] MEDS: ALLOPURINOL 100 MG TABLET PO SCH (08:22)
[2022-06-28] MEDS: GABAPENTIN 100 MG CAPSULE PO SCH (08:22)
[2022-06-28] MEDS: CARVEDILOL 3.125 MG TABLET PO SCH (08:22)
[2022-06-28] MEDS: GLUCERNA SHAKE 237 ML CAN PO SCH (08:23)
[2022-06-28] MEDS: ANASTROZOLE 1 MG TABLET PO SCH (08:24)
[2022-06-28] MEDS: CADEXOMER IODINE 40 GM TUBE TOP SCH (09:00)
[2022-06-28] MEDS: REMEDY ESSENTIAL ZINC PASTE 113 GM TOP SCH (09:00)
[2022-06-28] MEDS: SILVER SULFADIAZINE 1% CREAM 50 GM TP SCH (09:00)
--- NOTE | 2022-06-28 10:10 | NUR ---
report called to Samuel MANDEL of [facility]. bipap machine was also delivered per samuel MANDEL.
--- NOTE | 2022-06-28 11:46 | NUR ---
telephone order received. continue all current medication per MD.
--- NOTE | 2022-06-28 12:40 | NUR ---
pt is discharge.pt is alert and oriented. denies any pain,nausea and vomiting. pt is hemodynamically stable. vitals wnl. pt will continue abx tx at [facility]. LFA arm midline patent an intact and awsw left in placed . FC is intact and draining well. Left zamudio wound noted. abdominal fold redness noted. all belongings accounted for.
== END 2022-06-28 11:40 | DRG 871 ==
LOC: ER 18:22 → TELE3 21:41
PROVIDERS: ADMIT Internal Medicine; ATTEND Internal Medicine
PROC: 05H533Z Insertion of Infusion Device into Right Subclavian Vein, Percutaneous Approach (ICD-10-PCS; 2022-06-21)
PROC: B546ZZA Ultrasonography of Right Subclavian Vein, Guidance (ICD-10-PCS; 2022-06-21)
PROC: 05H633Z Insertion of Infusion Device into Left Subclavian Vein, Percutaneous Approach (ICD-10-PCS; principal; 2022-06-23)
PROC: B547ZZA Ultrasonography of Left Subclavian Vein, Guidance (ICD-10-PCS; 2022-06-23)
DX: A41.9 Sepsis, unspecified organism (principal); I50.33 Acute on chronic diastolic (congestive) heart failure; J96.21 Acute and chronic respiratory failure with hypoxia; J96.22 Acute and chronic respiratory failure with hypercapnia; L03.116 Cellulitis of left lower limb; L03.115 Cellulitis of right lower limb; I87.312 Chronic venous hypertension (idiopathic) with ulcer of left lower extremity; L97.829 Non-pressure chronic ulcer of other part of left lower leg with unspecified severity; E66.2 Morbid (severe) obesity with alveolar hypoventilation; Z68.41 Body mass index [BMI] 40.0-44.9, adult; I13.0 Hypertensive heart and chronic kidney disease with heart failure and stage 1 through stage 4 chronic kidney disease, or unspecified chronic kidney disease; N17.9 Acute kidney failure, unspecified; D64.9 Anemia, unspecified; N18.30 Chronic kidney disease, stage 3 unspecified; Z79.4 Long term (current) use of insulin; Z85.3 Personal history of malignant neoplasm of breast; Z86.16 Personal history of COVID-19; Z90.710 Acquired absence of both cervix and uterus; Z79.01 Long term (current) use of anticoagulants; I48.91 Unspecified atrial fibrillation; E78.5 Hyperlipidemia, unspecified; E11.22 Type 2 diabetes mellitus with diabetic chronic kidney disease; M10.9 Gout, unspecified; E11.42 Type 2 diabetes mellitus with diabetic polyneuropathy; I87.2 Venous insufficiency (chronic) (peripheral); I95.9 Hypotension, unspecified; Z20.822 Contact with and (suspected) exposure to COVID-19; I07.1 Rheumatic tricuspid insufficiency
CPT/HCPCS: 36415; 36600; 71045; 73590; 82803; 83605; 83735; 84100; 84484; 85025; 85730; 87040; 93005; 93307; 94660; 94760; A4663; G0378; J1120; J1815; J1940; J2543; J3370; J8499; P9047